=== PATIENT | male | born 1995 | race Caucasian/White ===

== ENCOUNTER 2022-01-26 16:44 | Emergency (ER) | payer OTHER ==
[~2022-01-26] VITALS: Ht 170.2 cm; Wt 68.0 kg
== END 2022-01-26 21:16 | disposition home or self-care (01) ==
LOC: ER 16:44
DX: J10.1 Influenza due to other identified influenza virus with other respiratory manifestations (principal); Z20.822 Contact with and (suspected) exposure to COVID-19

== ENCOUNTER 2022-03-19 14:11 | Emergency (ER) | payer OTHER ==
[~2022-03-19] VITALS: Ht 170.2 cm; Wt 68.0 kg
== END 2022-03-19 22:23 | disposition home or self-care (01) ==
LOC: ER 14:11
DX: I88.0 Nonspecific mesenteric lymphadenitis (principal); Z20.822 Contact with and (suspected) exposure to COVID-19